=== PATIENT | female | born 1995 | race Caucasian/White ===

== ENCOUNTER 2016-12-05 11:14 | Outpatient (CLI) | payer SELFPAY ==
[2016-12-05 11:45] VITALS: BP 103/61
[2016-12-05] MEDS ORDERED: LACTATED RINGERS 500 ML IV ONE (12:10)
--- NOTE | 2016-12-06 10:19 | Ultrasound Report ---
OB LIMITED History: Abdominal pain during , fall. Technique: Transabdominal ultrasound with Doppler interrogation. Gestation: Single Position: Cephalic Amniotic Fluid: Normal KAIA = 17.1 cm Placenta: Anterior Placental Grade: 1 Heart Rate: 148 BPM Comment: There is no evidence for abruption. Cervical length: cm (Normal > 3 cm)
== END 2016-12-05 16:44 | disposition home or self-care (01) ==
LOC: TRG 11:14
PROVIDERS: ATTEND Specialist
DX: O26.892 Other specified pregnancy related conditions, second trimester (principal); O47.02 False labor before 37 completed weeks of gestation, second trimester; R10.9 Unspecified abdominal pain; W19.XXXD Unspecified fall, subsequent encounter; Z3A.24 24 weeks gestation of pregnancy
CPT/HCPCS: 59025; 76815

== ENCOUNTER 2021-06-01 12:19 | Emergency (ER) | payer SELFPAY ==
--- NOTE | 2021-06-01 16:19 | Emergency Department Report ---
ED HPI - General Chief complaint: Abdominal Pain Stated complaint: ABD PAIN Time Seen by Provider: 06/01/21 16:04 Source: EMS Mode of arrival: Ambulatory Limitations: No Limitations - History of Present Illness Initial comments: 25-year-old female is currently 16 weeks presents to the ER today with complaints of left lower quadrant/left pelvic pain. Patient states that she has been having this left lower quadrant/left pelvic pain since 2019. She was diagnosed with endometriosis as a cause of her pain. She states that the pain has been intermittent since he started in 2019 and typically resolves with heat or if she lays on her side or Tylenol but today the pain got significantly worse to the point where she was doubled over. She states that since she was , this scared her and she started hyperventilating and was cramping in her hands and feet and having numbness in her feet and so she called ambulance. She states that none of her usual regimen, Tylenol, heat or laying on her side helped today. She denies any abnormal vaginal bleeding or abdominal vaginal discharge. She denies any UTI symptoms. She denies any nausea, vomiting, fever or chills. She denies diarrhea but states she has been having some hard stools. She is Ab0. She states that her pain initially was 10 out of 10. Currently her pain is 8 out of 10. MD Complaint: abdominal pain, other (16 weeks gestation ) -: days(s) - Related Data Previous Rx's Medication Instructions Recorded Last Taken Type Famotidine [Pepcid] 20 mg PO BID #20 tablet 06/01/21 Unknown Rx Allergies Allergy/AdvReac Type Severity Reaction Status Date / Time No Known Allergies Allergy Unverified 12/05/16 11:19 ED Review of Systems ROS: Stated complaint: ABD PAIN Other details as noted in HPI Comment: All other systems reviewed and negative Constitutional: denies: chills, diaphoresis, fever, malaise, weakness Eyes: denies: eye pain, eye discharge, vision change ENT: denies: ear pain, throat pain, dental pain, hearing loss, congestion Respiratory: denies: cough, shortness of breath, SOB with exertion, SOB at rest, wheezing Cardiovascular: denies: chest pain, palpitations, dyspnea on exertion, edema, syncope, paroxysmal nocturnal dyspnea Gastrointestinal: abdominal pain. denies: nausea, vomiting, diarrhea, constipation, hematemesis, hematochezia Genitourinary: denies: urgency, dysuria, frequency, hematuria, discharge, abnormal menses, dyspareunia Musculoskeletal: denies: back pain, joint swelling, arthralgia Skin: denies: rash, lesions, change in color, change in hair/nails, pruritus Neurological: denies: headache, weakness, numbness, paresthesias, confusion, abnormal gait, vertigo Psychiatric: anxiety. denies: depression, auditory hallucinations, visual hallucinations, homicidal thoughts, suicidal thoughts Hematological/Lymphatic: denies: easy bleeding, easy bruising, swollen glands ED Past Medical Hx - Past Medical History Previous Medical History?: No Additional medical history: denies - Surgical History Past Surgical History?: No Additional Surgical History: denies - Social History Smoking Status: Never Smoker Substance Use Type: None - Medications Home Medications: Home Medications Medication Instructions Recorded Confirmed Last Taken Type Famotidine [Pepcid] 20 mg PO BID #20 tablet 06/01/21 Unknown Rx ED Physical Exam - General Limitations: No Limitations General appearance: alert, in no apparent distress - Head Head exam: Present: atraumatic, normocephalic, normal inspection - Eye Eye exam: Present: normal appearance, PERRL, EOMI Pupils: Present: normal accommodation - ENT ENT exam: Present: normal exam, mucous membranes moist, TM's normal bilaterally - Neck Neck exam: Present: normal inspection, full ROM - Respiratory Respiratory exam: Absent: respiratory distress - Cardiovascular Cardiovascular Exam: Present: regular rate, normal rhythm, normal heart sounds - GI/Abdominal GI/Abdominal exam: Present: soft, tenderness (Mild tenderness palpation epigastric, left upper quadrant left lower quadrant area without any guarding, rebound or rigidity.). Absent: distended, guarding, rebound, rigid - Neurological Exam Neurological exam: Present: alert, oriented X3, CN II-XII intact, normal gait - Psychiatric Psychiatric exam: Present: normal affect, normal mood - Skin Skin exam: Present: intact ED Course Vital Signs 06/01/21 06/01/21 13:25 18:44 Temperature 98.4 F Pulse Rate 71 Respiratory 16 16 Rate Blood Pressure 89/51 O2 Sat by Pulse 98 Oximetry ED Medical Decision Making - Lab Data Result diagrams: 06/01/21 17:01 06/01/21 17:01 - Radiology Data Radiology results: report reviewed Patient: LUPE COOPER MR#: [id number] : 1995 Acct:[id number] Age/Sex: 25 / F ADM Date: 06/01/21 Loc: ED Attending Dr: Ordering Physician: SKYLER SANTIAGO Date of Service: 06/01/21 Procedure(s): US OB >= 14 weeks Fetus Accession Number(s): [id number] cc: SKYLER SANTIAGO ULTRASOUND OBSTETRIC INDICATION / CLINICAL INFORMATION: pain, 16 weeks . Clinical age: 16, 2 TECHNIQUE: Transabdominal. COMPARISON: None available. FINDINGS: Single intrauterine . Biparietal Diameter = 3 cm = 15, 4 weeks, days Head Circumference = 11.9 cm = 15, 6 weeks, days Abdominal Circumference = 10.5 cm = 16, 3 weeks, days Femur Length = 2 cm = 16, 0 weeks, days Average Ultrasound Age (AUA) = 16, 0 weeks, days Heart Rate: 140 beats per minute at maximum. There was some variability of the heart rate during the exam. heart rate is measured at 140 bpm, 133 bpm, and 59 bpm. Estimated Weight in grams (if calculated): 148 Estimated Weight Growth Percentile (if calculated): 35 Position: cephalic. Cervix: closed. Placenta: posterior and free of the os. Amniotic Fluid Volume: normal Maternal Adnexa: No significant abnormality. IMPRESSION: 1. Single, living intrauterine with estimated sonographic age of 16, 0 weeks, days. 2. There was some variability in the heart rate during this exam. This should be followed as the progresses. Signer Name: Robin Ledezma MD Signed: 06/01/2021 5:56 PM Workstation Name: [id number] Transcribed By: Dictated By: Robin Ledezma MD Electronically Authenticated By: Robin Ledezma MD Signed Date/Time: 06/01/21 175 DD/ 172 TD/TT: - Medical Decision Making labs reviewed --CBC reviewed and shows nothing acute. CMP shows mild hyponatr emia with a sodium of 134 but otherwise unremarkable. Lipase normal. Urinalysis does not suggest UTI. OB ultrasound shows IMPRESSION: Single, living intrauterine with estimated sonographic age of 16, 0 weeks, days. There was some variability in the heart rate during this exam. This should be followed as the progresses. Patient was given a bolus of fluids in route by EMS. Repeat vital signs shows that patient blood pressure was 94/54 patient is off petite stature and she is also which could account for her low blood pressure. Currently she has no symptoms of dizziness, chest pain, or shortness of breath or any other symptoms related to blood pressure at this time. She is currently resting comfortably in the bed. She states that she still has some left-sided abdominal discomfort more so now in the left upper quadrant. Repeat abdominal exam shows mild left upper quadrant abdominal tenderness but no guarding or rebound and she has no abdominal rigidity. Her pain could be related to her endometriosis but gastritis and constipation is also a possibility. Her history, exam, diagnostic testing and current condition do not suggest acute appendicitis, bowel obstruction, acute cholecystitis, bowel perforation, major GI bleed, severe diverticulitis, abdominal aortic aneurysm, mesenteric ischemia, volvulus, sepsis or other significant pathology to warrant further testing, continued ED treatment, admission or surgical evaluation at this point. Discussed lab and imaging results with patient. She states that she has a follow-up appointment with her INTELLIGENCE INTERN in June but I did recommend to her that she call and try to see if she can be seen sooner given the variability in babies heart rate on ultrasound. Discussed suspected diagnosis and treatment plan with patient. Patient expressed understanding of instructions and agree with plan. Patient stable at time of discharge. Critical care attestation.: If time is entered above; I have spent that time in minutes in the direct care of this critically ill patient, excluding procedure time. ED Disposition Clinical Impression: Left sided abdominal pain, 16 weeks gestation of , Hx of endometriosis Disposition: DC-01 TO HOME OR SELFCARE Is pt being admited?: No Does the pt Need Aspirin: No Condition: Stable Instructions: Abdominal Pain During , [id number], Abdominal Pain (ED) Additional Instructions: I recommend that you take tylenol as needed for pain. Take the pepcid as prescribed. Drink lots of water and high fiber diet to help with constipation. Follow up closely with OBGYN in next 2-3 days for re-evaluation of . REturn to ED if symptoms worsens or changes in anyway,. Prescriptions: Famotidine [Pepcid] 20 mg PO BID #20 tablet Referrals: PRIMARY CARE, [Primary Care Provider] - 3-5 Days Time of Disposition: 19:43
[2021-06-01 17:21] LABS: Basophils % (Auto) 0.4 % (0.0-1.8); Hematocrit 36.5 % (30.3-42.9); Hemoglobin 12.5 gm/dl (10.1-14.3); Lymphocytes # (Auto) 0.8 K/mm3 (1.2-5.4); Lymphocytes % (Auto) 7.9 % (13.4-35.0); Mean Corpuscular HGB Conc 34 % (30-34); Mean Corpuscular Volume 90 fl (79-97); Monocytes # (Auto) 0.2 K/mm3 (0.0-0.8); Monocytes % (Auto) 1.7 % (0.0-7.3); Platelet Count 204 K/mm3 (140-440); Red Blood Count 4.03 M/mm3 (3.65-5.03); Red Cell Distribution Width 13.2 % (13.2-15.2)
[2021-06-01 17:36] LABS: Alanine Aminotransferase 8 units/L (7-56); Albumin 4.2 g/dL (3.9-5); Blood Urea Nitrogen 4 mg/dL (7-17); Hemolysis Index 10
[2021-06-01] MEDS ORDERED: ACETAMINOPHEN 325 MG TAB PO ONE (17:40)
[2021-06-01 17:58] LABS: BUN/Creatinine Ratio 13
--- NOTE | 2021-06-01 18:00 | Ultrasound Report ---
ULTRASOUND OBSTETRIC INDICATION / CLINICAL INFORMATION: pain, 16 weeks . Clinical age: 16, 2 TECHNIQUE: Transabdominal. COMPARISON: None available. FINDINGS: Single intrauterine . Biparietal Diameter = 3 cm = 15, 4 weeks, days Head Circumference = 11.9 cm = 15, 6 weeks, days Abdominal Circumference = 10.5 cm = 16, 3 weeks, days Femur Length = 2 cm = 16, 0 weeks, days Average Ultrasound Age (AUA) = 16, 0 weeks, days Heart Rate: 140 beats per minute at maximum. There was some variability of the heart rat e during the exam. heart rate is measured at 140 bpm, 133 bpm, and 59 bpm. Estimated Weight in grams (if calculated): 148 Estimated Weight Growth Percentile (if calculated): 35 Position: cephalic. Cervix: closed. Placenta: posterior and free of the os. Amniotic Fluid Volume: normal Maternal Adnexa: No significant abnormality. IMPRESSION: 1. Single, living intrauterine with estimated sonographic age of 16, 0 weeks, days. 2. There was some variability in the heart rate during this exam. This should be followed as th e progresses. Signer Name: Robin Ledezma MD Signed: 06/01/2021 5:56 PM Workstation Name: [id number]
[2021-06-01 19:22] LABS: Amorphous Crystals,Urine Few; Bilirubin,Urine NEG (Negative); Blood,Urine NEG (Negative); Color,Urine Yellow (Yellow); Mucus,Urine FEW /HPF; Protein,Urine <15 mg/dL mg/dL (Negative); Urobilinogen,Urine < 2.0 mg/dL (<2.0)
[2021-06-01] MEDS ORDERED: FAMOTIDINE 20 MG TAB PO ONE (19:40)
[2021-06-02 00:35] VITALS: BP 94/59
== END 2021-06-01 20:10 | disposition home or self-care (01) ==
LOC: ED 12:19
DX: O26.892 Other specified pregnancy related conditions, second trimester (principal); R10.32 Left lower quadrant pain; Z79.899 Other long term (current) drug therapy; Z3A.16 16 weeks gestation of pregnancy; Z87.42 Personal history of other diseases of the female genital tract
CPT/HCPCS: 36415; 76805; 80053; 81001; 83690; 84702; 85025